=== PATIENT | male | born 1995 | race Two or more races ===

== ENCOUNTER 2022-07-13 21:12 | Emergency (ER) | payer MEDICAID ==
[~2022-07-13] VITALS: Ht 182.9 cm; Wt 79.4 kg
[2022-07-13 22:02] LABS: HEMATOCRIT 46.7 % (36.7-47.1); MEAN CORPUSCULAR HEMOGLOBIN 28.6 uug (23.8-33.4); MEAN CORPUSCULAR VOLUME 85.3 fL (73.0-96.2); PLATELET COUNT (AUTO) 271 K/uL (152-348)
[2022-07-13 22:03] LABS: CARBON DIOXIDE 27 mmol/L (21-32); CHLORIDE 105 mmol/L (98-107); CREATININE 1.1 mg/dL (0.6-1.3); GLUCOSE 125 mg/dL (74-106); POTASSIUM 3.2 mmol/L (3.5-5.1); UREA NITROGEN, BLOOD 13 mg/dL (7-18)
[2022-07-13 22:09] LABS: ACETAMINOPHEN < 2.0 ug/mL (10-30); ALANINE AMINOTRANSFERASE 47 U/L (16-63); ALKALINE PHOSPHATASE 115 U/L (50-136); ASPARTATE AMINOTRANSFERASE 76 U/L (15-37); BILIRUBIN,DIRECT 0.2 mg/dL (0.0-0.2); BILIRUBIN,TOTAL 0.9 mg/dL (0.2-1.0); TOTAL PROTEIN, SERUM 8.5 g/dL (6.4-8.2)
[2022-07-13 22:15] LABS: ETHANOL < 3 MG/DL (0-0)
[2022-07-13] MEDS ORDERED: POTASSIUM BICARBONATE/CIT AC 25 MEQ TABLET.EFF PO ONE (22:30)
[2022-07-14] MEDS ORDERED: POTASSIUM BICARBONATE/CIT AC 25 MEQ TABLET.EFF ONE (00:44)
[2022-07-14 01:22] LABS: *BILIRUBIN,URIN NEGATIVE (NEGATIVE); *BLOOD, URINE NEGATIVE (NEGATIVE); *CLARITY,URINE CLEAR (CLEAR); *COLOR,URINE YELLOW (YELLOW); *KETONES,URINE NEGATIVE (NEGATIVE); LEUKOCYTE ESTERASE ,URINE NEGATIVE (NEGATIVE); NITRITE, URINE NEGATIVE (NEGATIVE); PH,URINE 5.5 (5.0-8.0); UGLUCOSE NEGATIVE (NEGATIVE)
--- NOTE | 2022-07-14 01:29 | NUR ---
Voicemail left for Nancie from Crisis Team.
[2022-07-14] MEDS ORDERED: HALOPERIDOL LACTATE 5 MG/1 ML VIAL IM ONE (01:30)
[2022-07-14] MEDS ORDERED: diphenhydrAMINE 50 MG/1 ML VIAL IM ONE (01:30)
[2022-07-14] MEDS ORDERED: LORAZEPAM 2 MG/1 ML VIAL IM ONE (01:30)
[2022-07-14 01:39] LABS: BACTERIA,URINE NONE SEEN /HPF (NONE SEEN); RBC,URINE 0-3 /HPF (0-3); SQUAMOUS EPITHELIAL CELL,UR FEW /HPF (NONE SEEN); WBC,URINE 0-3 /HPF (0-3)
[2022-07-14] MEDS ORDERED: HALOPERIDOL LACTATE 5 MG/1 ML VIAL ONE ×2 (01:40→08:11)
[2022-07-14] MEDS ORDERED: diphenhydrAMINE 50 MG/1 ML VIAL ONE (01:40)
[2022-07-14] MEDS ORDERED: LORAZEPAM 2 MG/1 ML VIAL ONE ×2 (01:41→07:48)
[2022-07-14 01:42] LABS: *AMPHETAMINE, URINE NEGATIVE (NEGATIVE); *CANNABINOID, URINE POSITIVE (NEGATIVE); *COCCAINE, URINE NEGATIVE (NEGATIVE); *OPIATE, URINE NEGATIVE (NEGATIVE); *PHENCYCLIDINE SCREEN,URINE NEGATIVE (NEGATIVE)
--- NOTE | 2022-07-14 03:30 | NUR ---
Patient sleeping. NAD noted.
--- NOTE | 2022-07-14 06:26 | NUR ---
Contacted Nancie again, unable to get a hold of her.
--- NOTE | 2022-07-14 07:00 | NUR ---
Nancie called and is headed this way.
--- NOTE | 2022-07-14 07:12 | NUR ---
Report given to RODRI Muniz.
--- NOTE | 2022-07-14 07:30 | NUR ---
Nancie is here for psych eval.
--- NOTE | 2022-07-14 07:40 | NUR ---
Spoke with nursing sheet metal duct worker supervisor Terry in nursing office and requested 1:1 sitter for safety. He stated there is no one available due to short staffing. ER physician notified.
[2022-07-14] MEDS ORDERED: LORAZEPAM 2 MG/1 ML VIAL IV ONE (07:45)
--- NOTE | 2022-07-14 07:50 | NUR ---
Pt medicated with Ativan 2mg IM as ordered by .
[2022-07-14] MEDS ORDERED: HALOPERIDOL LACTATE 5 MG/1 ML VIAL IV ONE (08:00)
--- NOTE | 2022-07-14 08:15 | NUR ---
Lorena Kan) arrived and is at bedside for 1:1 observation.
--- NOTE | 2022-07-14 09:20 | NUR ---
Pt placed on 5150 Hold (DTS) by Christiana. Carrillo at bedside. Per Nancie she has faxed pt's information to multiple facilities for transfer for psych. Pt is sleeping at this time with no s/s of distress noted.
--- NOTE | 2022-07-14 09:25 | NUR ---
Correction for previous note. Pt was placed on 5150 Hold by [employer] yesterday (07/13) at 2128.
--- NOTE | 2022-07-14 11:05 | NUR ---
Pt sleeping with NAD noted. Sitter at bedside. Pending transfer.
--- NOTE | 2022-07-14 12:30 | NUR ---
Pt's information faxed to [facility] (alternate fax number [phone]) as requested by Susana Wilkes LCSW.
--- NOTE | 2022-07-14 14:45 | NUR ---
Pt is calm and cooperative at this time. Pt sitting in chair in room 3 and eating lunch. Per Susana she will attempt to trans pt to [facility] for voluntary admission.
--- NOTE | 2022-07-14 16:00 | NUR ---
Pt is awake, alert and oriented x 4. Pt called and spoke with his father via telephone.
--- NOTE | 2022-07-14 16:15 | NUR ---
Pt stated his father will pick him up from the ER and he does not want to go to [facility].
--- NOTE | 2022-07-14 16:45 | NUR ---
Pt stated his father is outside to pick him up. Pt ambulated out of ER with steady gait.
== END 2022-07-14 17:10 | disposition home or self-care (01) ==
LOC: ER 21:12
DX: T45.2X2A Poisoning by vitamins, intentional self-harm, initial encounter (principal); T40.2X2A Poisoning by other opioids, intentional self-harm, initial encounter; Y92.89 Other specified places as the place of occurrence of the external cause; R45.1 Restlessness and agitation; Z78.1 Physical restraint status; R00.0 Tachycardia, unspecified; Z20.822 Contact with and (suspected) exposure to COVID-19
CPT/HCPCS: 80076; 80048; 85025; 36415; 80299; 80320; 80307; 81001; 87426; 99285; 96372 ×2; J1200; J1630 ×2; J2060 ×2; A4663; G0480